=== PATIENT | female | born 1975 | race Two or more races ===

== ENCOUNTER 2023-04-29 11:45 | Outpatient (CLI) | payer OTHER, SELFPAY ==
--- NOTE | 2023-04-29 13:03 | W.ANESCHARGE ---
Anesthesia Charges Start Date/Time Anesthesia Start Date: 04/29/23 Anesthesia Start Time: 12:34 Stop Date/Time Anesthesia Stop Date: 04/29/23 Anesthesia Stop Time: 13:00
--- NOTE | 2023-04-29 13:04 | W.ANESCHARGE ---
Anesthesia Charges Start Date/Time Anesthesia Start Date: 04/29/23 Anesthesia Start Time: 12:34 Stop Date/Time Anesthesia Stop Date: 04/29/23 Anesthesia Stop Time: 13:00
== END 2023-04-29 11:46 | disposition home or self-care (01) ==
LOC: OP CLINIC 05-03 12:21
PROVIDERS: PCP Nurse Practitioner Family; Visit Provider Surgery
DX: Z12.11 Encounter for screening for malignant neoplasm of colon (principal); K63.5 Polyp of colon
CPT/HCPCS: 00811; 45385; 88305; J2704

== ENCOUNTER 2023-05-17 09:12 | Outpatient (CLI) | payer OTHER, SELFPAY ==
--- NOTE | 2023-05-17 09:15 | CRLHL7_ITS ---
For Patients: As a result of the Century Cures Act, medical imaging exams and procedure reports are released immediately into your electronic medical record. You may view this report before your referring provider. If you have questions, please contact your health care provider. BILATERAL SCREENING MAMMOGRAM WITH COMPUTER-AIDED DETECTION AND TOMOSYNTHESIS TECHNIQUE: CC and MLO views were obtained. These mammographic images have been obtained using full-field digital technique. These mammographic images were interpreted with the benefit of computer-aided detection. Breast Tomosynthesis was used in this interpretation. COMPARISON FILM: 10/28/20, 06/01/19. FINDINGS: There are scattered areas of fibroglandular density IMPRESSION: There is no radiographic evidence for malignancy. ASSESSMENT: BI-RADS Category 1: Negative RECOMMENDATION: Routine screening mammogram in 1 year. A lay language report of this examination will be provided to the patient. Max Sidhu M.D. Diagnostic Radiologist [email or web address] CALLIE/Dictated by: Max Sidhu MD @ 05/17/2023 11:44:00 AM (Electronically Signed)
== END 2023-05-17 09:13 | disposition home or self-care (01) ==
LOC: MAMMO 09:14
PROVIDERS: PCP Nurse Practitioner Family; Visit Provider Nurse Practitioner Family
DX: Z12.31 Encounter for screening mammogram for malignant neoplasm of breast (principal)
CPT/HCPCS: 77063; 77067; T1013

== ENCOUNTER 2023-08-30 09:56 | Outpatient (CLI) | payer OTHER, SELFPAY | END 2023-08-30 09:57 | disposition home or self-care (01) | PROVIDERS: PCP Nurse Practitioner Family; Visit Provider Family Medicine | DX: Z00.00 Encounter for general adult medical examination without abnormal findings (principal); E66.9 Obesity, unspecified; E28.2 Polycystic ovarian syndrome; Z13.6 Encounter for screening for cardiovascular disorders; G25.81 Restless legs syndrome | CPT/HCPCS: 80053; 80061; 82607; 82728; 84443 ==

== ENCOUNTER 2023-10-03 07:11 | Outpatient (CLI) | payer OTHER, SELFPAY ==
--- OUTSIDE RECORDS SUMMARY | 2023-10-03 07:13 | XMS_ITS | Clinical Summary ---
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 30 capsule 12/14/2019 Active albuterol HFA (PROAIR HFA) 90 mcg/actuation inhalerIndications:C OVID-19 virus infection Inhale 1-2 Puffs by mouth every 6 hours if needed. 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) 01/10/2016 Vitamin D deficiency 12/30/2009 Fibroadenoma of breast 03/22/2009 Breast pain 03/22/2009 Obesity, unspecified 08/14/2006 Polycystic ovaries Migraine, unspecified, witho ut mention of intractable migraine without mention of status migrainosus Resolved Problems Problem Noted Date Diagnosed Date Resolved Date Carpal tunnel syndrome of right wrist 01/10/2016 05/30/2017 Trigger index finger of right hand 01/10/2016 01/09/2017 Trigger middle finger of right hand 01/10/2016 01/09/2017 Immunizations Name Administration Dates Next Due AMB Influenza, IIV3 (Age >=3 years)(Flu Clinic Only) 04/10/2010 AMB Influenza, IIV4 PF (=>6 mos Flulaval,Fluzone Fluarix)(Flu Clinic Only) 04/03/2017,03/29/2016,04/20/2014 Covid-19 Vaccine (Unspecified) 10/02/2020 Influenza A (H1N1), Inactivated 05/23/2009 Influenza A (H1N1), Inactiva pablito (Age >=3 Years) 05/23/2009 Influenza, IIV3 (Age 6-35 mos) 04/06/2011,2008 Influenza, IIV3 (Age >=3 years) 04/02/20 13,03/18/2012,04/06/2011,2008,03/24/2008,04/23/2007 Tdap 12/24/2007 Family History Medical History Relation Name Comments Good Health Brother 1 Good Health Brother 2 Good Health Brother 3 Good Health Brother 4 1/2 Alcohol/Drug Father etoh Other Father cirrhosis, dece ased Unknown Maternal Grandfather Unknown Maternal Grandmother d, old age Blindness Mother from diabetes Diabetes Mother , diabe ryan. Hypertension Mother Unknown Paternal Grandfather d, old age Unknown Paternal Grandmother Thyroid Disease Sister 1 thyroid issu es. Good Health Sister 2 vericose veins Good Health Sister 3 Good Health Sister 4 1/2 Cancer-breast No Family History Cancer-ovarian No Family History Relation Name Status Comments Brother 1 Brother 2 Brother 3 Brother 4 Father Maternal Grandfather Maternal Grandmother Mother Paternal Grandfather Paternal Grandmother Sister 1 Sister 2 Sister 3 Sister 4 Social History Tobacco Use Types Packs/Day Years Used Date Smoking Tobacco: Never Smokeless Tobacco: Never Tobacco Cessation:Counseling Given: Yes Alcohol Use Standard Drinks/Week Comments Yes 0 (1 standard drink = 0.6 oz pur e alcohol) wine rarely PHQ-2 Answer Date Recorded PHQ-2 TOTAL SCORE 2 12/12/2021 Social Connections Answer Date Recorded Frequency of Communication with Friends and Fami ly Not on file 06/03/2021 Financial Resource Strain Answer Date R ecorded Difficulty of Paying Living Expenses Not on file 06/03/2021 Difficulty of Paying Living Expenses Not on file 06/03/2021 Sex and Gender Information Value Date Recorded Sex Assigned at Not on file Gender Identity Not on file Sexual Orientation Not on file Obstetrics History Para Term AB IAB SAB Ectopic Multiple Livin g Live Births 3 2 2 Date Outcome GA Total Labor Labor/2nd/3rd Weight Sex Delivery Anes PTL Jaqui A1 A5 Name Cl in Para Para Last Filed Vital Signs Vital Sign Reading Time Taken Comments Blood Pressure 141/88 03/12/2022 1:34 PM CDT Pulse 75 03/12/2022 1:34 PM CDT Temperature 36.6 ??C (97.9 ??F) 12/14/2019 12:51 PM C DT Respiratory Rate 14 09/04/2018 9:55 AM CDT Oxygen Saturation 99% 03/12/2022 1:34 PM CDT Inhaled Oxygen Concentration - - Weight 73.9 kg (163 lb) 03/12/2022 1:34 PM CDT Height 150.5 cm (4' 11.25) 03/12/2022 1:34 PM C DT Body Mass Index 32.64 03/12/2022 1:34 PM CDT Plan of Treatment Health Maintenance Due Date Last Done Comments HIV for age 15-65 10/18/1990 Hepatitis C screening for age 18-79 10/18/1993 Tetanus booster 12/23/2017 12/24/2007 BMI (ht and wt on same day) for age 18+ 12/12/2022 12/12/2021, 12/12/2021, 12/12/2021, Additional history exists Depression screening for age 12+ 12/13/2022 12/13/2021, 12/12/2021, 09/04/2018, Additional history exists Mammogram for age 45-75 12/13/2022 12/13/2021, 09/04 Fecal testing non-DNA (FIT,FOBT,iFOBT) for age 45-75 12/26/2022 12/26/2021 COVID-19 vaccine series ( season) 2023 10/02/2020 Influenza for age 9-49 02/02/2024 7, 03/29/2016, 04/20/2014, Additional history exists Lipids for age 45-75 12/12/2026 12/12/2021, 03/18/2012, 12/25/2007 Pap test for age 21-65 12/12/2026 , 12/12/2021, 09/04/2018, Additional history exists Tdap Completed 12/24/2007 Pneumococcal series for age 6-64 Aged Out No longer eligible based on patient's age to complete this topic Procedures Procedure Name Priority Date/Time Associated Diagnosis Comments OCCULT BLOOD IFOBT STOOL Routine 12/26/2021 11:15 AM CDT Screening for colon cancer XR MAMMO JAMI BILAT SCREEN Routine 12/13/2021 3:43 PM CDT Visit for screening mammogram LIPID PANEL W REFLEX MEASURED LDL Routine 12/12/2021 9:48 AM CDT Screening for lipoid disorders HPV THIN PREP Routine 12/12/2021 9:20 AM CDT Pap smear for cervical cancer screening from Last 3 Months or Most Recently Relevant to Health Maintenance Results * OCCULT BLOOD IFOBT STOOL (12/26/2021 11:15 AM CDT) STOOL BLOOD ,IFOBT Negative Negative 12/29/2021 12:28 PM CDT [facility] Stool STOOL SPECIMEN / Unknown Non-Blood / Unknown 12/26/2021 11:15 AM CDT 12/28/2021 11:15 AM CDT Jenelle Chao MD LABORATORY [facility] [address] [place] [address], * XR MAMMO JAMI BILAT SCREEN (12/13/2021 3:43 PM CDT) Anatomical Region Laterality Modality BREASTS, Breast Left, Breast Right Bilateral Mammography Impressions 12/14/2021 5:07 PM CDT ??There is no radiographic evidence for malignancy. ??Recommend annual mammograms. MAMMOGRAM ASSESSMENT: ??ACR 1 Negative PATIENTS: You will also receive a letter with your examination results in an easy to read format. ??If you have questions about your results, please contact your referring provider. Narrative 12/14/2021 5:07 PM CDT For Patients: As a result of the Century Cures Act, medical imaging exams and procedure reports are released immediately into your electronic medical record. You may view this report before your referring provider. If you have questions, please contact your health care provider. XR MAMMO JAMI BILAT SCREEN [[id number]] CLINICAL HISTORY: ??This is an asymptomatic 46 y.o. patient. INDICATION FOR EXAM: Mammogram Screening. TECHNIQUE: CC & MLO views were obtained. ??This study was evaluated with the assistance of Computer-Aided Detection. Breast Tomosynthesis was used in interpretation. COMPARISON FILM: Yes 09/04/18 Flareo ?? FINDINGS: ??The breasts are heterogeneously dense, which may obscure small masses. There are no dominant masses, suspicious micro calcifications or areas of architectural distortion. Jenelle Chao MD MAMMO * LIPID PANEL W REFLEX MEASURED LDL (12/12/2021 9:48 AM CDT) CHOLESTEROL,TOTAL 186 100 - 199 mg/dL 12/12/2021 6:43 PM CDT [facility] TRIGLYCERIDES 92 <150 mg/dL 12/12/2021 6:43 PM CDT [facility] HDL CHOLESTEROL 62 >40 mg/dL 6:43 PM CDT [facility] NON-HDL CHOLESTEROL 124 <145 mg/dl 12/12/2021 6:43 PM CDT [facility] CHOL/HDL RATIO 3.00 <4.50 12/12/2021 6:43 PM CDT [facility] LDL CHOLESTEROL 106 <=130 mg/dL 12/12/2021 6:43 PM CDT [facility] VLDL CHOLESTEROL 18 <=30 mg/dL 12/12/2021 6:43 PM CDT [facility] PROVIDER ORDERED STATUS RANDOM 12/12/2021 6:43 PM CDT [facility] Blood BLOOD SPECIMEN / Unknown Venipuncture / Unknown 12/12/2021 9:48 AM CDT 12/12/2021 9:48 AM CDT Jenelle Chao MD CHEMISTRY [facility] [address] [place] [address], * HPV HIGH RISK (12/12/2021 9:20 AM CDT) TYPE 16 Negative Negative 12/14/2021 1:43 PM CDT [facility] TYPE 18 Negative Negative 12/14/2021 1:43 PM CDT [facility] OTHER HIGH RISK TYPES Negative Negative 12/14/2021 1:43 PM CDT [facility] Other (Cervical/Vagina l) Non-Blood / Unknown 12/12/2021 9:20 AM CDT 12/12/2021 6:07 PM CDT Narrative [facility] - 12/14/2021 1:43 PM CDT HPV types 16, 18, 31, 33, 35, 39, 45, 51, 52, 56, 58, 59, 66 and 68 DNA were undetectable or below the pre-set threshold. Methodology: Xray [employer] Chris 4800 HPV Test Jenelle Chao MD MICROBIOLO GY [facility] 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
--- OUTSIDE RECORDS SUMMARY | 2023-10-03 07:13 | XMS_ITS | Data Portability ---
Author Name Unknown Address [address] [place] [address] Phone [phone] Organization [facility] Address [address] [place] [address] [place] [address] Assessment Encounter Date Assessment Date Assessment LastModified by Organization Details LastModified Time 05/22/2021 05/22/2021 Annual DARIEN visit already scheduled for 10/21. [email or web address] Not available 05/22/2021 14:45:50 Plan of Treatment Reminders Order Date Submit Date Provider Last Modified By Organization Details Last Modified Time Details Appointments None recorde d. Lab lipid panel, serum 2022 023 AMANDEEP Not available 3 12:23:55 CK (creati ne kinase) , total, serum 2022 023 AMANDEEP Not available 4 18:54:47 CBC 2022 023 AMANDEEP Not available 3 11:45:29 vitamin B12 + folate, serum or blood 2022 023 AMANDEEP Not available 3 10:09:11 HbA1c (hemogl obin A1c), blood 2022 023 AMANDEEP Not available 3 12:23:55 BMP, blood 2022 023 AMANDEEP Not available 3 12:23:55 vitamin B12 + folate, serum or blood 2021 022 [email or web address] Not available 2 18:06:25 CBC 2021 022 [email or web address] Not available 2 18:06:35 CK (creati ne kinase) , total, serum 2021 022 [email or web address] Not available 18:06:45 ferriti n, serum or plasma 2021 022 [email or web address] Not available 18:06:56 BMP, serum or plasma 2021 022 lrosasbalvin Not available 18:07:05 glycohe moglobi n, total, blood 2020 023 [email or web address] Not available 3 16:41:22 glycohe moglobi n, total, blood 2020 021 AMANDEEP Not available 11:21:43 CBC w/ diff 2020 AMANDEEP Not available 15:17:12 TSH, serum, reflex free T4 2020 021 AMANDEEP Not available 15:17:12 vitamin D, 25-hydr oxy, total, serum 2020 021 AMANDEEP Not available 09:33:14 Referral orthope dic referra l - Can we please put Sra. Henriquez on the list for Dr. Kit lim to evaluat e her carpal tunnel syndrom e 2020 021 [email or web address] Not available 19:46:25 Procedures nerve conduct ion study/E MG, upper extremi ty (PROC) - Dian al. 2021 022 einamagua Not available 2 19:34:15 Surgeries None recorde d. Imaging MAMMO, screendian payne al 2022 023 AMANDEEP Not available 4 12:49:34 MAMMO, screeni dian romano al 2020 021 AMANDEEP Not available 1 12:21:53 Medication Orders Dulcola x (bisaco dyl) 5 mg tablet, delayed release 2022 023 [facility][id number], [address] [place], [place], [phone], 3 10:48:02 magnesi um citrate oral solutio n 2022 023 [facility] #[id number], [address] [place], [place], [phone], 3 10:48:00 polyeth ylene glycol 3350 17 gram/do se oral powder 2022 023 [facility] #[id number], [address] [place], [place], [phone], 10:48:03 Patient TargetsNo targets recorded. Patient Instructions Encounter Date Encounter Id Patient Instructions Last Modified By Organization Details Last Modified Time 06/28/2021 [id number] Tendonitis will not improve with surgery or operation. Should wear work wrist support with metal support in front or change work. Can take aleve or ibuprofen as needed. We may check new EMG's due to dysesthesias of both hands. [email or web address] Not available 06/28/2021 16:32:26 Bilateral wrist tendonitis Bilateral foot plantar faciitis Right Ring finger dysesthesias Old CTS S/P Right CTR Possible peripheral neuropathies both upper extremities Not available 06/28/2021 16:29:25 Reason for Referral Orthopedic Referral for Carp al tunnel syndrome Can we please put Sra. Henriquez on the list for Dr. Cook to evaluate her carpal tunnel syndrome Referring Physician: Haylee Calixto, Family Medicine, Encounter Date: 10/10/2020 Results Created Date Observation Date Name Description Value Unit Range Abnormal Flag LastModifiedBy Organization Detail LastModifiedTime 10/11/1910/10/2020 CBC w/ diff TSH 1.44 Not Available [address], [address], 10/10/2020 15:17:12 10/11/19 21 10/10/2020 CBC w/ diff white blood count 6.3 Not Available [address] [place], [address], 10/10/2020 15:17:12 10/11/19 21 10/10/2020 CBC w/ diff hemoglobin 11.6 Not Available [address] [place], [address], 10/10/2020 15:17:12 10/11/19 21 10/10/2020 CBC w/ diff platelet count 329 Not Available [address] [place], [address], 10/10/2020 15:17:12 10/11/19 21 10/10/2020 TSH, serum , refle x free T4 TSH 1.44 Not Available [address] [place], [address], 10/10/2020 15:10:44 10/11/19 21 10/10/2020 TSH, serum , refle x free T4 white blood count 6.3 Not Available [address] [place], [address], 10/10/2020 15:10:44 10/11/19 21 10/10/2020 TSH, serum , refle x free T4 hemoglobin 11.6 Not Available [address] [place], [address], 10/10/2020 15:10:44 10/11/19 21 10/10/2020 TSH, serum , refle x free T4 platelet count 329 Not Available [address] [place], [address], 10/10/2020 15:10:44 05/03/20 21 05/03/2021 glyco hemog lobin , total , blood A1C 5.7 % <7 normal Not Available [facility] [address], [place], [address], 05/04/2021 18:08:14 05/03/20 21 05/03/2021 CBC w/ auto diff white blood count 6.9 Not Available Not Available 17:26:44 05/03/20 21 05/03/2021 CBC w/ auto diff hemoglobin 13.7 Not Available Not Available 1 07/09/2020 17:26:44 05/03/20 21 05/03/2021 CBC w/ auto diff platelet count 319 Not Available Not Available 17:26:44 11/19/19 21 10/28/2020 MAMMO , scree demi, bilat eral No observ ation record ed. [email or web address] Not Available 11/23/2020 11:24:35 05/20/20 23 06/12/2023 MAMMO , scree demi, bilat eral No observ ation record ed. [email or web address] Not Available 06/19/2023 10:30:08 Result Notes None recorded. Problems Name Status Onset Date Resolution Date Notes Provider Name and Address Organization Details Recorded Time Carpal tunnel syndrome Active 1 Haylee Calixto NP [address] [place], [address], [facility] 11/27/2021 09:07:52 Family history of diabetes mellitus type 2 Active 1 Haylee Calixto NP [address] [place], [address], [facility] [place] 11/27/2021 09:07:55 Notes:Problem: Carpal tunnel syndrome Status: Non-Chronic Problem Notes None recorded. Procedures Surgical History Date Name Laterality Status Provider Name and Address Organization Details Recorded Time 9 Date of Last Mammogram completed Haylee Calixto NP [address] [place], [address], [facility] 10/10/2020 13:23:16 9 Date of Last Pap Smear completed Haylee Calixto NP [address] [place], [address], [facility] 10/10/2020 13:22:45 Imaging Results Imaging Date Name Status LastModified by Organiz ation Details LastModified Time 10/28/2020 MAMMO, screening, bilateral completed [email or web address] Information not available 11/23/2020 11:24:35 06/12/2023 MAMMO, screening, bilateral completed [email or web address] Information not available 06/19/2023 10:30:08 Procedure Notes None recorded. Medical Equipment None Reported. Allergies No known drug allergies Medications Name Sig Start Date Stop Date Status Note LastModified by Organization Details LastModified Time magnesium citrate soln lemon 296ml TAKE 10 OZ BY DIRECTED active Not Available Not Available No t Available amoxicillin 500 mg capsule TAKE 2 CAPSULES NOW THEN 1 CAPSULE EVERY 8 HOURS UNTIL ALL TAKEN 02/18 completed Not Available Not Available Not Available fluconazole 150 mg tablet 02/18 completed Not Available Not Available Not Available metronidazo le 500 mg tablet TAKE 1 TABLET BY MOUTH IN THE MORNING AND 1 TABLET IN THE EVENING FOR 7 DAYS. 02/18 completed Not Available Not Available Not Available benzonatate 100 mg capsule TK 1 C PO TID PRF COUGH 10/10 completed Not Available Not Available Not Available magnesium citrate oral solution Take 10 oz by oral route as directed 2022 active Not Available Not Available Not Avai lable polyethylen e glycol 3350 17 gram/dose oral powder TAKE 238 GRAM NEEDED FOR PRE-SURGE RY PREPERATI ON active Not Available Not Available No t Available albuterol sulfate HFA 90 mcg/actuati on aerosol inhaler INL 1 TO 2 PFS PO Q 6 H PRN 10/10 completed Not Available Not Available Not Available Dulcolax (bisacodyl) 5 mg tablet,yamil yed release TAKE 2 TABLETS BY MOUTH NEEDED FOR 1 DAY active Not Available Not Available No t Available multivitami n active Not Available Not Available Not Available Vitals Date Recorded Oxygen saturation Oxygen saturation in Arterial blood by Pulse oximetry Heart rate Respiratory rate Body height Body mass index (BMI) Body weight Systolic blood pressure Diastolic blood pressure Provider Name and Address Organization Details Last Updated DateTime 98 % 98 % 76 /min 14 /min 152.4 cm 31.2 kg/m2 96772.7 8 g 125 mm[Hg] 75 mm[Hg] Haylee Calixto, LAURA [address] [place], [address], [facility] 1 11:24:44 Date Recorded Body height Body mass index (BMI) Body weight Heart rate Body temperature Oxygen saturation Oxygen saturation in Arterial blood by Pulse oximetry Systolic blood pressure Diastolic blood pressure Provider Name and Address Organization Details Last Updated DateTime 2 152.4 cm 31.6 kg/m2 13060.9 6 g 70 /min 98.1 [degF] 98 % 98 % 119 mm[Hg] 77 mm[Hg] Yana freeman [facility] [employer] 2 15:22:38 Date Recorded Body height Body temperature Heart rate Body mass index (BMI) Body weight Systolic blood pressure Diastolic blood pressure Provider Name and Address Organization Details Last Updated DateTime 2 152.4 cm 97 [degF] 62 /min 32.2 kg/m2 72926.7 4 g 127 mm[Hg] 84 mm[Hg] Haylee Calixto, LAURA [address] [place], [address], [facility] 2 12:23:36 Date Recorded Body weight Oxygen saturation Oxygen saturation in Arterial blood by Pulse oximetry Heart rate Systolic blood pressure Diastolic blood pressure Provider Name and Address Organization Details Last Updated DateTime 3 95829.4 9 g 99 % 99 % 71 /min 137 mm[Hg] 79 mm[Hg] SOBIA Murillo [address] [place], [address], [facility] 3 15:13:53 Date Recorded Body weight Heart rate Oxygen saturation Oxygen saturation in Arterial blood by Pulse oximetry Body temperature Body mass index (BMI) Body height Systolic blood pressure Diastolic blood pressure Provider Name and Address Organization Details Last Updated DateTime 3 55200.8 7 g 81 /min 99 % 99 % 98.4 [degF] 34.1 kg/m2 152.4 cm 123 mm[Hg] 78 mm[Hg] SOBIA Murillo [address] [place] [address], [address], [facility] [employer] [facility] 3 10:37:17 Date Recorded Systolic blood pressure Diastolic blood pressure Provider Name and Address Organization Details Last Updated DateTime 05/25/2019 124 mm[Hg] 78 mm[Hg] Not Available [facility] 0 12/21/2019 12:57:33 Social History None recorded. Functional Status None recorded. Mental Status None recorded. Family History Relationship Description Onset Age of this Age Resolved Age Notes Mother Diabetes mellitus 55 Mother Hypertensive disorder 55 Father Cirrhosis of liver Sister Hypothyroidism Medical History No medical history recorded. Gynecological History Statement/Question Response Abnormal Pap N Date of Last Mammogram 09/04/2018 Frequency of Cycle (Q days) 28 Menses Monthly Y Date of Last Pap Smear 09/01/2018 Duration of Flow (days) 5 Current Control Method Partner Vas ectomy Obstetrics History GPAL:G 4 P 2 0 2 2 Type Value Full Term 2 Spontaneous 2 Living 2 Total 4 Immunizations Vaccine Type Date Status Provider Name and Address Organization Details Recorded Time SARS-COV-2 (COVID-19) vaccine, UNSPECIFIED 10/02/2020 [place] [address] [place] [address], [address], [facility] [employer] [facility] 10/10/2020 11:21:20 Past Encounters Encounter ID Performer Location Encounter Start Date Encounter Closed Date Diagnosis/Indication Diagnosis SNOMED-CT Code [id number] Haylee Calixto NP [facility] [address] [place] [address] 10/10/2020 10:53:00 10/13/2020 12:16:01 Fatigue 07984859 Diabetes m ellitus screening 772029298 Carpal luis ngozi syndrome 41389827 Screening for malignant neoplasm of breast 685733784 [id number] Haylee Calixto NP [facility] [address] [place] [address] 05/22/2021 10:47:51 05/22/2021 11:52:27 Family history of diabetes mellitus type 2 159017131 Iron defic iency anemia 29975564 [id number] PATRICA WILCOX, [facility] [address] [place] [address] 06/28/2021 15:12:00 07/26/2021 15:39:36 Tendinitis of wrist 124903871 Plantar fasciitis 20280103 003 Idiopathic peripheral neuropathy 64796371 [id number] Haylee Calixto NP [facility] [address] [place] [address] 11/27/2021 11:57:18 11/27/2021 12:55:56 Paresthesia of foot 552844520 [id number] Annabella Sanders [facility] [address] [place] [address] 02/18/2023 14:59:43 02/18/2023 17:50:28 Screening for malignant neoplasm of breast 478415952 Diabetes m ellitus screening 314459398 Hyperlipid emia screening 271606264 Screening for malignant neoplasm of colon 764029681 Pain in bi lateral legs [id number] Annabella Sanders [facility] [place] [facility] [address] [place] [address] 04/15/2023 10:23:29 04/15/2023 11:01:16 Pre-surgery evaluation 205824276 Right uppe r quadrant pain 282552426 Health Concerns Section Related Observation LastModified by Organization Detai ls LastModified Time None Recorded Concern Status LastModified by Organization Details LastModified Time None Recorded Advance Directives Directive None Recorded Payers Encounter Date Sequence Insurance Name Policy Number Policy Dhaliwal Covered Member ID [id number] Member ID Guarantor Name 04/15/2023 SLIDING FEE SCHEDULE - DISCOUNT Dulce Henriquez 02/18/2023 DARIEN SCREENING PROGRAM - [place] [employer] Dulce Henriquez [id number] Dulce Mascorroa 11/27/2021 SLIDING FEE SCHEDULE - DISCOUNT Dulce Henriquez 06/28/2021 SLIDING FEE SCHEDULE - DISCOUNT Dulce Henriquez 05/22/2021 SLIDING FEE SCHEDULE - DISCOUNT Dulce Henriquez 10/10/2020 SLIDING FEE SCHEDULE - DISCOUNT Dulce Henriquez Notes Date Note Type Note Provider Name and Address Organization Details Recorded Time 10/10/2020 text/html HPI Notes: 44 ye ar 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 No new concerns today. ROS/History review: All family had COVID-20 November 2019 except her son. was hospitalized for 3 days. Family has now been vaccinated. Kids are 23 and 21. After COVID-19, there are days when she has headaches, feels fatigued, some body aches. Feels out of shape despite exercising frequently: walks, runs, Jeromy classes, bicycles. Gets constipated with red meat. Periods: feels that they are getting heavier, especially on the second day. Lasting 5-7 days. has vasectomy. Had a lot of anxiety after COVID; slept poorly. Only sleeping 2 hours a night. Now, some days feels sad, some days feels well. Children are leaving and there is transition which is stressful. However, her son moved to [place] to [facility] and this has been a mary. During COVID, felt depressed, anxious and lonely. Now feels she can control her worrying. Reads books to help, breathing exercises. No anhedonia. No SI. PMH: Ovarian Cysts. Renal stones. Gallstones. Used to be obese (170#) but lost 35# with exercise and diet. Has gained most of that back (160 today). PSH: Right Carpal Tunnel Release, Lap Pura 2008. GyneHx: . Last Pap 09/2018 (no co-testing); due . SocHx: Lives with and 1 child and dog. Nonsmoker. Rare drinkers. FamHx: Mother of diabetes and HTN; 55. Father of cirrhosis and high cholesterol. 1 brother with diabetes. Sister with hypothyroidism Haylee Calixto, LAURA [address] [place], [address], [facility] [employer] [facility] 10/10/2020 13:58:27 05/22/2021 text/html HPI Notes: Quick phone visit with Sra. Mascorroa to follow up on her recent labs and share her excellent progress. Hgb up to 13.7mg/dl, up from 11.6 10/21 through eating iron-rich foods and multivitamin with iron. A1C is also improved: now 5.7%, down from 6.1% Patient has had Booster; whole family is also vax'd and boosted. She reports good health and no concerns. Has upcoming appointment with Dr. Cook to evaluate wrist and foot pain. Haylee Calixto [employer]ELD SERVICE P[employer] TECHNICIAN [address] [place], [address], [facility] 05/22/2021 14:47:55 06/28/2021 text/html HPI Notes: Lonny Cook pt. Had a surgery in [place] on R wrist for carpaltunnel. Started hand tingling 5 years ago. Denies thyroid issues, dm, bp. Left not as bad. R ring finger sleeps more. Claims R thumb arthritis. 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 Had steroids and hydrocortisone before surgery which helped some. Had injection for R ring finger but has sensation now. Had elbow injections, was told that it was tendonitis. Surgery helped a lot. Has wrist guards to reduce motion while sleeping, but nothing for work. Work-related. Had [employer] but earns too much. Also foot pain in arch and heel. Claims not work-related. Lonny Cook pt. Had a surgery in [place] on R wrist for carpal tunnel about 5 years ago and improved significantly. Started hand tingling 5 years ago that improved after surgery that appered to be arthroscpic release. However she had post op ring finger pain and tingling that improved with time but never copletely resolved. Denies thyroid issues, diabetes mellitus, high blood pressur. Left also symptomatic not as bad and no significant tinglling. . Claims R thumb base arthritis. 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 Had steroids and hydrocortisone injection to right wrist and both elbows before surgery which helped some. Had injection for R ring finger and has sensation now which she had diminished after surgery. Had elbow injections, was told that it was epicondylitis. Carpal tunnel surgery helped a lot. Has wrist guards to reduce motion while sleeping that improves symptoms, but nothing for work. Resting on long weekends help a lot. Work-related. Had [employer] application denied. Also foot pain in arch and heel, start up pain worse in mornings. Claims not work-related. 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 Patient reports she has chronic hand pain (s/p carpal tunnel release) and leg pain. For the past month, has noticed her bilateral calf pain is worsening. She is sore from the soles of her feet to her knees. Also reports paresthesias, occasional cramping and burning feeling. The pain does not prevent her from working but is constantly uncomfortable. Worsens throughout day. Does not interfere with sleep but persists all night. Has tried heel cups (prescribed by Dr. Cook for plantar fasciitis), special insoles, epsom salt soaks, stretching, exercise but none of these have been helpful. No perioral parasthesias or other abnormal sensations. Has gained weight. Frustrated her calf pain means she can no longer run or do Jeromy like she has in the past. A1C normal as recently as 05/23. Very mild anemia (Hgb 11.6) noted 05/23. VTSH also normal 10/21. Sister recently diagnosed with what sounds like thrombophlebitis and patient is concerned this could be a cause. Haylee Calixto, FIELD SERVICE POULTRY TECHNICIAN [address] [place], [address], [facility] - [facility] [facility] 11/27/2021 17:54:38 02/18/2023 text/html HPI Notes: Pt he re today for routine WWE through [facility] Last pap: last year at [facility] Last mammo: last year at [facility] Sx today:occasionally has cyclical breast pain but denies any breast sxs or vaginal sxs. Is sexually active with her spouse; spouse has had vasectomy LMP: 02/12. Periods are regular, usually last about a week. Has recently been noticing she sometimes will have two periods a month Hx of DM in family Last A1C was 5.7 in 2020 Has had ongoing bilateral lower extremity pain. Was seen for this in November of 2021. At that time was going to have some labwork done and discuss possible podiatry referral but she was never able to get the labwork done. Has continued to have bilateral calf and foot pain. She is sore from the soles of her feet to her knees. Doesn't report parestheias per say but reports a sensation of burning. The pain does not prevent her from working but is constantly uncomfortable. Worsens throughout day. Reports noticing some LE sarah as well. Does not interfere with sleep. Has tried heel cups, special insoles, epsom salt soaks, stretching, exercise but none of these have been helpful. SOBIA Murillo [address] [facility] [place], [address], [facility] [employer] [facility] 02/18/2023 15:57:05 04/15/2023 text/html HPI Notes: This is a 47-year-old with history of positive IFOB who is scheduled to have a colonosopy on [address] [facility] A preoperative consultation before this procedure was requested. In addition to this chief complaint, this patient also presents with the following: right upper quadrant pain. Reports pain present for about 3 weeks. Isn't a severe pain, just is constantly there. It seems to get a little worse after eating (feels more sharp). Has had her gallbladder removed. No fever, nausea, vomiting, diarrhea reported. No hx of cardiac, respiratory, liver, kidney, thyroid, coagulation disorders Can walk 4 flights of stairs without stopping PAST SURGICAL HISTORY: 1. gallbladder removal 2. kidney stone removal Patient denies previous surgical or anesthetic complications, apart from post anethesia nausea. MEDICATIONS: None ALLERGIES: NKDA No hx of tobacco, alcohol and other substance use LMP: 29 March 2023 SOBIA Murillo [address] [facility] [place], [address], [facility] [employer] [facility] 04/15/2023 10:59:40 OBGyn Episode No OBEpisode recorded.
--- NOTE | 2023-10-03 07:15 | US_ITS ---
Patient: WILLIAM FERNANDEZ Facility:?[facility] RIS Patient ID:?[id number] Site Patient ID:?[id number]. Site :?[id number] Study:?US-Extremity Bilateral INSUFFICIENCY INTV TO READ-10/03/2023 8:22:48 AM Ordering Physician:?FAITH BURTON Final Report: INDICATION: Other specified soft tissue disorders COMPARISON: None available TECHNIQUE: A duplex venous ultrasound exam was performed of both lower extremities using bernal scale imaging, color Doppler and spectral Doppler analysis. Pre- and post compression images were obtained per site specific protocol. The size of the superficial veins were recorded, along with reflux times if applicable. FINDINGS: In the right lower extremity deep venous system, there is normal compressibility, color Doppler venous blood flow and augmentation within the common femoral vein, superficial femoral vein, popliteal vein, and posterior tibial veins. The greater and lesser saphenous veins of the right lower extremity are also patent and compressible with intact color Doppler venous blood flow. The greater saphenous vein measures 0.6 cm at the saphenofemoral junction where it is competent. The greater saphenous vein is competent throughout the thigh and calf. The lesser saphenous vein is not visualized. In the left lower extremity deep venous system, there is normal compressibility, color Doppler venous blood flow and augmentation within the common femoral vein, superficial femoral vein, popliteal vein, and posterior tibial veins. The greater and lesser saphenous veins of the left lower extremity are also patent and compressible with intact color Doppler venous blood flow. The greater saphenous vein measures 0.6 cm at the saphenofemoral junction where it is competent. The greater saphenous vein is incompetent within the proximal calf measuring 5 seconds. The greater saphenous vein elsewhere is competent. The lesser saphenous vein is not visualized. IMPRESSION: 1. No deep or superficial venous thrombosis. 2. Venous insufficiency within the left greater saphenous vein in the proximal calf. No venous insufficiency on the right. Dictated by Max Sidhu MD @ 10/03/2023 11:02:22 AM Signed by:?Max Sidhu MD @10/03/2023 11:02:22 AM (Electronic Signature)
== END 2023-10-03 07:12 | disposition home or self-care (01) ==
LOC: US 07:11
PROVIDERS: PCP Family Medicine; Visit Provider Family Medicine
DX: M79.89 Other specified soft tissue disorders (principal); I87.2 Venous insufficiency (chronic) (peripheral)
CPT/HCPCS: 93970; T1013

== ENCOUNTER 2023-12-11 07:30 | Outpatient (RCR) | payer OTHER, SELFPAY | END 2024-03-11 11:05 | disposition home or self-care (01) | PROVIDERS: PCP Family Medicine; Visit Provider Family Medicine | DX: M72.2 Plantar fascial fibromatosis (principal); M79.671 Pain in right foot; M79.672 Pain in left foot; M62.81 Muscle weakness (generalized); Z51.89 Encounter for other specified aftercare | CPT/HCPCS: 97110; 97140; 97161; T1013 ==

== ENCOUNTER 2024-01-17 15:46 | Outpatient (CLI) | payer OTHER, SELFPAY ==
--- OUTSIDE RECORDS SUMMARY | 2024-01-17 15:50 | XMS_ITS | Clinical Summary ---
Author Organization [facility] Address [place], [place] [address] Care Team Providers Care Network Operations Center Technician Name Role Phone Jenelle Chao MD Primary [...] middle finger of right hand 01/10/2016 01/09/2017 Encounters Date Type Department Care Team Description 11/06/2023 Telephone [facility] [address] [place] [address] Jenelle Chao MD Appointment Reminder from Last 3 Months Immunizations Name Administration Dates Next Due AMB [...] Outcome GA Total Labor Labor/2nd/3rd Weight Sex Type Anes PTL Jaqui A1 A5 Name Clin Para Para Last Filed Vital Signs Vital [...] 03/12/2022 1:34 PM CDT Plan of Treatment Upcoming Encounters Date Type Department Care Team (Late st Contact Info) Description 02/13/2024 4:00 PM CDT Office Visit [facility] [address] [place] [address] Fei Del Rio MD [address] [place] [address] Health Maintenance Due Date Last Done Comments [...] age 45-75 12/26/2022 12/26/2021 COVID-19 vaccine series (2022- season) 2023 10/02/2020 Influenza for age 9-49 [...] ,IFOBT Negative Negative 12/29/2021 12:28 PM CDT [facility] [place] STOOL SPECIMEN / Unknown Non-Blood / Unknown 12/26/2021 11:15 AM CDT 12/28/2021 11:15 AM CDT Jenelle Chao MD [place] [facility] [place] [address] [place] [address], * XR MAMMO JAMI BILAT SCREEN (12/13/2021 [...] care provider. XR MAMMO JAMI BILAT SCREEN [[id number]] CLINICAL HISTORY: ??This is an asymptomatic 46 y.o. patient. INDICATION FOR EXAM: Mammogram Screening. TECHNIQUE: CC & MLO views were obtained. ??This study was evaluated with the assistance of Computer-Aided Detection. Breast Tomosynthesis was used in interpretation. COMPARISON FILM: Yes 09/04/18 [facility] [employer] ?? FINDINGS: ??The breasts are heterogeneously dense, which may obscure small masses. There are no dominant masses, suspicious micro calcifications or areas of architectural distortion. Jenelle Chao MD MAMMO * LIPID PANEL W REFLEX MEASURED LDL (12/12/2021 9:48 AM CDT) CHOLESTEROL,TOTAL 186 100 - 199 mg/dL 12/12/2021 6:43 PM CDT [facility] TRIGLYCERIDES 92 <150 mg/dL 12/12/2021 6:43 PM CDT [facility] HDL CHOLESTEROL 62 >40 mg/dL 6:43 PM CDT [facility] NON-HDL CHOLESTEROL 124 <145 mg/dl 12/12/2021 6:43 PM CDT [facility] CHOL/HDL RATIO 3.00 <4.50 12/12/2021 6:43 PM CDT [facility] LDL CHOLESTEROL 106 <=130 mg/dL 12/12/2021 6:43 PM CDT [facility] VLDL CHOLESTEROL 18 <=30 mg/dL 12/12/2021 6:43 PM CDT [facility] PROVIDER ORDERED STATUS RANDOM 12/12/2021 6:43 PM CDT [facility] Blood BLOOD SPECIMEN / Unknown Venipuncture / Unknown 12/12/2021 9:48 AM CDT 12/12/2021 9:48 AM CDT Jenelle Chao MD CHEMISTRY [facility] [address] * HPV HIGH RISK (12/12/2021 9:20 AM CDT) TYPE 16 Negative Negative 12/14/2021 1:43 PM CDT [facility] TYPE 18 Negative Negative 12/14/2021 1:43 PM CDT [facility] OTHER HIGH RISK TYPES Negative Negative 12/14/2021 1:43 PM CDT [facility] Other (Cervical/Vagina l) Non-Blood / Unknown 12/12/2021 9:20 AM CDT 12/12/2021 6:07 PM CDT Narrative [facility] - 12/14/2021 1:43 PM CDT HPV types 16, 18, 31, 33, 35, 39, 45, 51, 52, 56, 58, 59, 66 and 68 DNA were undetectable or below the pre-set threshold. Methodology: Thad Chris 4800 HPV Test Jenelle Chao MD MICROBIOLO GY [facility] [address] [place] [address], from Last 3 Months or Most Recently Relevant to Health Maintenance Advance Directives * Full Code (Latest Code Status on File) Date Activated Date Inactivated Comments 05/17/2017 12:09 PM 05/17/2017 10:06 PM Question Answer Comments Code Status Discussion: Per Existing Order Care Teams Network Operations Center Technician Relationship Specialty Start Date End Date Jenelle Chao MD [address] [place] [address] PCP - General Family Practice 04/08/12
== END 2024-01-17 15:47 | disposition home or self-care (01) ==
PROVIDERS: PCP Family Medicine; Visit Provider Obstetrics & Gynecology
DX: F52.0 Hypoactive sexual desire disorder (principal)
CPT/HCPCS: 84270; 84402; 84403; 84443

== ENCOUNTER 2024-03-13 08:30 | Outpatient (RCR) | payer OTHER, SELFPAY ==
--- NOTE | 2024-03-13 10:22 | OT.OPLDN2 ---
OT Outpatient Lymphedema Daily Note OT Outpatient Lymphedema Daily Note* Start: 03/03/24 14:20 Freq: Status: Active Protocol: Document 03/13/24 08:36 YANIRA (Rec: 03/13/24 09:43 YANIRA [id number]) E-signed By Aretha Dejesus OT Type of Note Type of Note Type of Note Discharge Note Visit Number 2 Insurance Information Insurance Information Insurance Information [facility] Home Program Home Program Home Program Compliant Home Program Specifics Manual Lymph Drainage for B LEs OT OP Lymphedema Daily/Progress Note Current Condition/Medical Diagnosis Referring Provider Fei Del Rio MD Treatment Diagnosis R22.43 Localized swelling, mass and lump, lower limb, bilateral Date Of Onset 03/03/22 Other Precautions standard precautions Medical History Medical History Obesity,Unexplained Pain Medical History Comments Pt has been experiencing pain and swelling for past two years in B LEs Recently treated for plantar fasciitis and participated in PT in OP setting. 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 Subjective Subjective I have been doing my exercises everyday, and now I have no pain. I even got to go a wedding and wear heals! My swelling is totally gone from my legs and ankles, they were hard and now they are soft and I can see all my ankle bones. Living Situation Current Living Situation Private Home/Apartment (Alone) Impairments Impairments Limb Heaviness,Poor Clothing Fit Problem List Problem List Limited Knowledge of Lymphedema Treatment/Condition /Precautions,Limited Knowledge of Skin Care & Infection Precautions,Significant Risk For Infection For Lymphedema Related Complications,Does Not Have a HEP Exercise History Does Patient Exercise Regularly Yes Exercise Comments compliant with previous PT HEP and new MLD HEP Pain Pain No ROM/Strength ROM/Strength Comments WFL Previous Treatment Previous Treatment/Current Home Program None Compression History Does Patient Currently Wear Compression Yes During Daytime Compression During Daytime Comments OTC compression knee highs Does Patient Currently Wear Compression No At Night Current Swelling (Location/Pitting/Texture) Pitting Scale: 0 = No pitting 1+ Tissue returns to normal almost immediately 2+ Tissue returns after 15-30 seconds 3+ Tissue returns after 1-1/2 minutes 4+ Tissue returns after 2-3 minutes N/A Tissue no longer pits due to induration Tissue texture: Soft or indurated Clinical Presentation Area B LEs, From mid calf to top of foot. Triggering Event & Start Date of approx 2 yrs ago Swelling/Lymphedema Skin Changes Comments None Positive Stemmer's Sign No Stemmer and Capillary Refill Comments WNL Swelling Comments Pt denies any swelling currently Type of Swelling Secondary Staging Staging Stage 1 Circumferential Measurements Lower Extremity Left Lower Extremity MTP (in cm) 22 Arch (in cm) 24 Calcaneus (in cm) 31 10 cm above Calcaneus Measurement 21 20 cm above Calcaneus Measurement 30 30 cm above Calcaneus Measurement 38 Total Girth in cm 166 LE Volume C 544 LE Volume D 522 LE Volume E 924 Lower Extremity Volume Total in cm 1,990 Right Lower Extremity MTP (in cm) 22 Arch (in cm) 24 Calcaneus (in cm) 31 10 cm above Calcaneus Measurement 21 20 cm above Calcaneus Measurement 31.5 30 cm above Calcaneus Measurement 39 Total Girth in cm 168.5 LE Volume C 544 LE Volume D 555.65 LE Volume E 992.53 Lower Extremity Volume Total in cm 2,092.18 Treatment Therapeutic Activity Minutes (minutes) 43 Therapeutic Activity Comments Pt educated on continuing signs and symptoms of stage 0 lymphedema including heaviness , tingling and numbness. Pt able to recall these symptoms previously but denies any currently. Pt educated on avoiding salt and to continue good hydration. Pt taught back HEP for MLD with minor corrections to place hand on skin and slide skin, rather than brush or rub skin and to add in the diaphragmic breathing 2x, 5x. Pt verbalized understanding. Pt educated on importance of continuing with HEP, and compression. Pt agreeable to DC based on goals met. Total Occupational Therapy Minutes 43 Patient Goals Patient Goals Patient will demo a decrease in BLE edema as evidenced by a 5 cm decrease in overall girth and decreased tightness of skin on BLE in order to improve skin integrity, pain and improve fit of LE garment. GOAL MET Patient will be able to teach back 100% of education on importance of skin care to prevent infection and maintain integrity of skin. GOAL MET Patient will be able to teach back 100% of education on manual lymphatic drainage HEP of BLEs to reduce lymphedema. GOAL MET Short Term Goals (# of Weeks) 4 Treatment Plan Treatment Plan Evaluation,Edema Control, Manual Therapy,Therapeutic Exercise,Self-Care/Home Management Occupational Therapy Billing Units Treatment Minutes Timed Treatment Minutes 43 Total Treatment Minutes 43 Certification Statement Certification Statement I Certify That: Therapy Services Provided, Therapy Plan Established, Therapy Plan Reviewed Discharge Note Discharge Note Discharge Summary Pt has been compliant with HEP and recommendations for compression. Pt now demonstrating no visible edema , and experiencing no pain. Pt able to teach back all education. No further OP OT lymph warranted at this time. Discharge completed. Date of First Visit for Therapy 03/03/24 Initial Primary Functional Limitations/ Pt has been experiencing pain, Concerns burning, weakness and swelling in her BLEs, predominately in her ankles and dorsum of foot for past two years. Pt has been increasing her healthy lifestyle after recs from MD and PT. Pt was treated for plantar fasciitis recently and continues to complete her HEP from this daily which includes roller massage, stretching and strengthening. Pt walks 40 mins daily, works FT, does yoga class 1x/wk. Pt has been wearing OTC compression socks since September and reports full compliance. Pt reporting a recent decrease in symptoms over last two weeks, and attributes this to her HEP and starting of Turmeric supplement. Pt has been cleared by vascular and referred for lymph evaluation. Interventions Provided During Treatment Edema Control,Therapeutic Exercise,Self Care/Home Management,Education Recommendations/Reason for Discharge Met All Therapy Goals Discharge Instructions Continue with HEP and compression garments.
== END 2024-03-13 11:38 | disposition home or self-care (01) ==
PROVIDERS: PCP Family Medicine; Visit Provider Surgery Vascular Surgery
DX: I89.0 Lymphedema, not elsewhere classified (principal); R22.43 Localized swelling, mass and lump, lower limb, bilateral; Z51.89 Encounter for other specified aftercare
CPT/HCPCS: 97165; 97530; T1013

== ENCOUNTER 2024-05-11 16:14 | Outpatient (CLI) | payer OTHER, SELFPAY | END 2024-05-11 16:15 | disposition home or self-care (01) | LOC: NFLDREF 05-17 05:52 | PROVIDERS: PCP Family Medicine; Referring Provider Family Medicine; Visit Provider Obstetrics & Gynecology | DX: F52.0 Hypoactive sexual desire disorder (principal) | CPT/HCPCS: 84403 ==

== ENCOUNTER 2024-09-18 07:44 | Outpatient (CLI) | payer OTHER, SELFPAY | END 2024-09-18 07:45 | disposition home or self-care (01) | LOC: NFLDREF 09-22 16:34 | PROVIDERS: PCP Family Medicine; Referring Provider Family Medicine; Visit Provider Family Medicine | DX: E78.5 Hyperlipidemia, unspecified (principal); R73.03 Prediabetes; R53.83 Other fatigue; Z13.9 Encounter for screening, unspecified; Z86.39 Personal history of other endocrine, nutritional and metabolic disease | CPT/HCPCS: 80053; 80061 ==

== ENCOUNTER 2024-09-22 07:53 | Outpatient (CLI) | payer OTHER, SELFPAY ==
--- NOTE | 2024-09-22 08:15 | CRLHL7_ITS ---
For Patients: As a result of the Century Cures Act, medical imaging exams and procedure reports are released immediately into your electronic medical record. You may view this report before your referring provider. If you have questions, please contact your health care provider. INDICATION: BILATERAL SCREENING MAMMOGRAM, [id number] COMPARISON: 10/28/20, DIAG 06/01/19 TECHNIQUE: CC and MLO views were obtained. These mammographic images have been obtained using full-field digital technique. These mammographic images were interpreted with the benefit of computer aided detection and tomosynthesis. BREAST COMPOSITION: There are scattered areas of fibroglandular density. FINDINGS: No suspicious findings. ASSESSMENT: BI-RADS 1 Negative RECOMMENDATION: Annual screening mammogram. A lay language report of this examination will be provided to the patient. Dictated by: Max Sidhu MD @ 09/22/2024 10:48:05 (Electronically Signed)
== END 2024-09-22 07:54 | disposition home or self-care (01) ==
LOC: MAMMO 07:54
PROVIDERS: PCP Family Medicine; Visit Provider Family Medicine
DX: Z12.31 Encounter for screening mammogram for malignant neoplasm of breast (principal)
CPT/HCPCS: 77063; 77067; T1013